=== PATIENT | male | born 1980 | race Caucasian/White ===

== ENCOUNTER 2024-11-22 09:34 | Emergency (ER) | payer SELFPAY | END 2024-11-22 10:15 | disposition home or self-care (01) | LOC: MADERS 09:34 | DX: H60.92 Unspecified otitis externa, left ear (principal); R03.0 Elevated blood-pressure reading, without diagnosis of hypertension | CPT/HCPCS: 99282 ==

== ENCOUNTER 2024-11-27 18:59 | Emergency (ER) | payer SELFPAY | END 2024-11-27 19:56 | disposition home or self-care (01) | LOC: MADERS 18:59 | DX: R42 Dizziness and giddiness (principal); H60.91 Unspecified otitis externa, right ear; R29.700 NIHSS score 0; Z87.891 Personal history of nicotine dependence | CPT/HCPCS: 99283 ==